=== PATIENT | male | born 1990 | race African-American/Black ===

== ENCOUNTER 2016-07-12 15:43 | Emergency (ER) | payer OTHER ==
[2016-07-12] MEDS ORDERED: NO HOME MEDICATION XX (15:50)
== END 2016-07-12 17:37 ==
LOC: EDMED 15:43
DX: S83.92XA Sprain of unspecified site of left knee, initial encounter (principal); S80.211A Abrasion, right knee, initial encounter; S69.92XA Unspecified injury of left wrist, hand and finger(s), initial encounter; V49.50XA Passenger injured in collision with unspecified motor vehicles in traffic accident, initial encounter; Y92.410 Unspecified street and highway as the place of occurrence of the external cause